=== PATIENT | male | born 1985 | race Caucasian/White ===

== ENCOUNTER 2018-07-13 09:55 | Outpatient (CLI) | payer BC ==
[2018-07-13 11:13] LABS: Hemoglobin 15.1 g/dL (14.0-18.0); Mean Corpuscular HGB CONC 33.3 g/dL (32.0-36.0); Mean Corpuscular Hemoglobin 30.4 pg (27.0-31.0); Mean Corpuscular Volume 91.3 fL (78.0-98.0); Mean Platelet Volume 7.6 fL (7.4-10.4); Platelet Count 235 thou/uL (130-400); RBC Distribution Width 12.1 % (11.5-14.5); Red Blood Cell (RBC) Count 4.95 mill/uL (4.70-6.10); White Blood Cell (WBC) Count 7.6 thou/uL (4.8-10.8)
[2018-07-13 11:33] LABS: Anion Gap 12 mmol/L (10-20); BUN (Urea Nitrogen) 6 mg/dL (8.9-20.6); Calc. Creatinine Clearance 0 mL/min (70-130); Calcium 9.5 mg/dL (7.8-10.44); Carbon Dioxide 26 mmol/L (22-29); Chloride 105 mmol/L (98-107); Estimated GFR-MDRD Greater than 90; Glucose 90 mg/dL (70-105); Potassium 3.9 mmol/L (3.5-5.1); Sodium 139 mmol/L (136-145)
== END 2018-07-13 09:56 | disposition home or self-care (01) ==
LOC: LABBT 09:55
PROVIDERS: ATTEND Neurological Surgery
DX: Z01.818 Encounter for other preprocedural examination (principal); M51.26 Other intervertebral disc displacement, lumbar region
CPT/HCPCS: 80048; 85027; 93005; 93010

== ENCOUNTER 2018-07-18 09:02 | Day surgery (SDC) | payer BC ==
[2018-07-13 10:03] VITALS: BMI 27.8
[2018-07-18] MEDS ORDERED: CEFAZOLIN/Water 2 GM/20 ML SYRINGE ONE (10:16)
[2018-07-18] MEDS ORDERED: Ketorolac Tromethamine 30 MG/ML VIAL ONE (13:10)
[2018-07-18] MEDS ORDERED: Glycopyrrolate 0.2 MG/ML 5 ML SYRINGE ONE (13:10)
[2018-07-18] MEDS ORDERED: Dexamethasone 20 MG/5 ML VIAL ONE (13:10)
[2018-07-18] MEDS ORDERED: PROPOFOL 200 MG/20 ML VIAL ONE (13:10)
[2018-07-18] MEDS ORDERED: Ondansetron HCl/PF 4 MG/2 ML Vial ONE (13:10)
[2018-07-18] MEDS ORDERED: Sodium Chloride 0.9% 10 ML ONE (13:25)
[2018-07-18] MEDS ORDERED: Fentanyl 100 MCG/2 ML VIAL ONE ×4 (14:12→16:09)
--- NOTE | 2018-07-18 14:58 | OP ---
DATE OF PROCEDURE: 07/18/2018 SURGEON: Garry Angelo M.D. TRIALS MANAGER: Donald Nevarez PROCEDURE: Left L5-S1 microdiskectomy. PROCEDURE IN DETAIL: The patient was brought to the operating room and intubated. He was rolled in prone position on gel-filled chest rolls. Incision was made exposing L5 and S1 on the left and our l evel was confirmed by x-ray. We performed left L5-S1 hemilaminectomy, removed the yellow ligament, i dentified the left S1 nerve root and beneath this was a large herniated disk. This was removed in mu ltiple fragments and a complete decompression was achieved. The wound was then extensively irrigated . Immaculate hemostasis was secured. Vancomycin powder was applied and the wound was closed in kumar omic layers.
[2018-07-18] MEDS ORDERED: HYDROcodone/Acetaminophen 5/325 mg Tablet ONE (16:42)
== END 2018-07-18 18:00 | disposition home or self-care (01) ==
LOC: SDC 09:02
PROVIDERS: ATTEND Neurological Surgery
PROC: 01NB0ZZ Release Lumbar Nerve, Open Approach (ICD-10-PCS; principal; 2018-07-18)
PROC: 0ST20ZZ Resection of Lumbar Vertebral Disc, Open Approach (ICD-10-PCS; principal; 2018-07-18)
DX: M51.26 Other intervertebral disc displacement, lumbar region (principal); Z79.899 Other long term (current) drug therapy; Z91.013 Allergy to seafood
CPT/HCPCS: 76001; 96374; 96376; A4216; J1100; J1885; J2405; J2704; J3010; J3370; J3490

== ENCOUNTER 2021-06-16 08:54 | Day surgery (SDC) | payer BC ==
[2021-06-13 12:53] VITALS: BMI 32.8
[2021-06-16] MEDS ORDERED: Fentanyl 100 MCG/2 ML VIAL ONE ×2 (10:40→12:51)
[2021-06-16] MEDS ORDERED: Dexamethasone 20 MG/5 ML VIAL ONE (10:50)
[2021-06-16] MEDS ORDERED: PROPOFOL 200 MG/20 ML VIAL ONE (10:50)
[2021-06-16] MEDS ORDERED: Ondansetron PF 4 MG/2 ML Vial ONE (10:50)
[2021-06-16] MEDS ORDERED: Lidocaine 1% PF 5 ML VIAL ONE (10:50)
[2021-06-16] MEDS ORDERED: Glycopyrrolate 0.2 MG/ML 5 ML SYRINGE ONE (10:50)
[2021-06-16] MEDS ORDERED: Ketorolac Tromethamine 30 MG/ML VIAL ONE (10:50)
[2021-06-16] MEDS ORDERED: Rocuronium Bromide 10 MG/ML (10ML VIAL) ONE (10:50)
[2021-06-16] MEDS ORDERED: HYDROmorphone 2 MG/ML VIAL ONE (11:27)
[2021-06-16] MEDS ORDERED: Morphine 2 MG/ML VIAL ONE (13:56)
[2021-06-16] MEDS ORDERED: HYDROcodone/Acetaminophen 5/325 mg Tablet ONE (14:22)
== END 2021-06-16 15:05 | disposition home or self-care (01) ==
LOC: SDC 08:54
PROVIDERS: ATTEND Neurological Surgery
PROC: 0SG30AJ Fusion of Lumbosacral Joint with Interbody Fusion Device, Posterior Approach, Anterior Column, Open Approach (ICD-10-PCS; principal; 2021-06-16)
DX: M51.27 Other intervertebral disc displacement, lumbosacral region (principal); M54.16 Radiculopathy, lumbar region; J45.909 Unspecified asthma, uncomplicated; Z91.013 Allergy to seafood; Z91.018 Allergy to other foods
CPT/HCPCS: 76000; C1713; C1768; J0690; J1100; J1170; J1885; J2270; J2405; J2704; J3010; J3370

== ENCOUNTER 2021-08-04 11:03 | Outpatient (CLI) | payer BC | END 2021-08-04 11:04 | disposition home or self-care (01) | LOC: TBSIIMAG 11:03 | PROVIDERS: ATTEND Neurological Surgery | DX: M54.16 Radiculopathy, lumbar region (principal) | CPT/HCPCS: 72100 ==

== ENCOUNTER 2022-03-13 08:18 | Outpatient (CLI) | payer BC | END 2022-03-13 08:19 | disposition home or self-care (01) | LOC: TBSIIMAG 08:18 | PROVIDERS: ATTEND Physician Assistant | DX: M54.50 Low back pain, unspecified (principal); Z98.890 Other specified postprocedural states | CPT/HCPCS: 72100 ==